=== PATIENT | female | born 1985 | race Hispanic/Latino ===

== ENCOUNTER 2021-04-30 09:53 | Emergency (ER) | payer SELFPAY ==
[2021-04-30 10:31] VITALS: BP 130/80
[2021-04-30] MEDS ORDERED: diphenhydrAMINE 50 MG/ML VIAL IV ONE (11:23)
[2021-04-30] MEDS ORDERED: METOCLOPRAMIDE 10 MG/2 ML INJ IV ONE (11:23)
[2021-04-30] MEDS ORDERED: KETOROLAC 10 MG TAB PO ONE (11:23)
[2021-04-30] MEDS ORDERED: SODIUM CHLORIDE 0.9% 1000 ML 1,000 ML IV ONE (11:23)
[2021-04-30] MEDS ORDERED: dexAMETHasone 20 MG/5 ML VIAL IV ONE (11:23)
[2021-04-30] MEDS ORDERED: IBUPROFEN 800 MG TAB PO STA (11:37)
[2021-04-30] MEDS ORDERED: BUTALB/ACETAMINOPHEN/CAFFEINE TAB PO STA (11:37)
[2021-04-30] MEDS ORDERED: ACETAMINOPHEN 325 MG TAB PO ONE (11:37)
--- NOTE | 2021-04-30 11:58 | Emergency Department Report ---
ED General Adult HPI - General Chief complaint: Headache Stated complaint: MIGRANE Time Seen by Provider: 04/30/21 10:49 Source: patient Mode of arrival: Ambulatory Limitations: No Limitations - History of Present Illness Initial comments: 35-year-old female patient presents with complaints of a headache that started around 4 AM this morning. She rates her headache as a 6/10 in severity. She denies any history of migraines or head injuries. Patient states she has not taken any OTC medication for her symptoms. She reports that she is recently homeless and has not been eating or drinking very much and believes she has a headache due to dehydration. Patient also denies any numbness/tingling/weakness in her limbs, difficulty with speech/ambulation, dizziness, nausea/vomiting, confusion, or memory loss. No prior medical history per patient. She also denies known drug allergies - Related Data Allergies Allergy/AdvReac Type Severity Reaction Status Date / Time Sulfa (Sulfonamide Allergy Hives Verified 04/30/21 10:31 Antibiotics) ED Review of Systems ROS: Stated complaint: MIGRANE Other details as noted in HPI Constitutional: denies: chills, diaphoresis, fever, malaise, weakness Eyes: denies: eye pain, vision change ENT: denies: other (Denies neck pain) Respiratory: denies: cough, shortness of breath Gastrointestinal: denies: nausea, vomiting Skin: denies: rash, lesions, change in color Neurological: headache. denies: numbness, paresthesias, confusion, abnormal gait Hematological/Lymphatic: denies: easy bleeding, easy bruising, swollen glands ED Past Medical Hx - Past Medical History Additional medical history: migraines ED Physical Exam - General Limitations: No Limitations General appearance: alert, in no apparent distress - Head Head exam: Present: atraumatic, normocephalic - Eye Eye exam: Present: normal appearance, PERRL, EOMI. Absent: scleral icterus, conjunctival injection - Neck Neck exam: Present: normal inspection - Respiratory Respiratory exam: Absent: respiratory distress - Cardiovascular Cardiovascular Exam: Present: regular rate - Neurological Exam Neurological exam: Present: alert, oriented X3, CN II-XII intact, normal gait. Absent: motor sensory deficit - Expanded Neurological Exam Expanded Upper motor neuron: Merritt Neglect: Normal, Pronator Drift: Normal, Babinski Sign: Normal, Sensory Extinction: Normal Sensory exam: Upper Extremity Light Touch: Normal, Lower Extremity Light Touch: Normal Motor strength exam: RUE: 4, LUE: 4, RLE: 4, LLE: 4 Best Eye Response (Yuniel): (4) open spontaneously Best Motor Response (Yuniel): (6) obeys commands Best Verbal Response (Yuniel): (5) oriented Meally Total: 15 - Psychiatric Psychiatric exam: Present: normal affect, normal mood - Skin Skin exam: Present: warm, dry, intact, normal color. Absent: rash ED Course Vital Signs 04/30/21 10:30 Temperature 98.0 F Pulse Rate 96 H Respiratory 16 Rate Blood Pressure 130/80 O2 Sat by Pulse 98 Oximetry ED Medical Decision Making - Medical Decision Making 35-year-old female patient presents with complaints of a headache that started around 4 AM this morning. She rates her headache as a 6/10 in severity. She denies any history of migraines or head injuries. Patient states she has not taken any OTC medication for her symptoms. She reports that she is recently homeless and has not been eating or drinking very much and believes she has a headache due to dehydration. Patient also denies any numbness/tingling/weakness in her limbs, difficulty with speech/ambulation, dizziness, nausea/vomiting, confusion, or memory loss. No prior medical history per patient. She also denies known drug allergies Patient states she is really here seeking help in finding a homeless longterm. Patient also requesting food and drinks. Patient given oral headache medications and states her headache has resolved. She is well-appearing and her vitals are within normal limits. She is neurologically intact on exam. Patient is to stable for discharge home. Patient provided with homeless longterm in formation. She was also given [facility] in follow-up. Discussed signs and symptoms that should prompt immediate return to the ED with patient verbalized understand Critical care attestation.: If time is entered above; I have spent that time in minutes in the direct care of this critically ill patient, excluding procedure time. ED Disposition Clinical Impression: Headache, acute, Homeless Disposition: HOME / SELF CARE / HOMELESS Is pt being admited?: No Condition: Stable Instructions: Tension Headache, Adult, Psek-he-Ebau Referrals: [facility] [place] [Outside] - 3-5 Days [facility] [Outside] - 3-5 Days
== END 2021-04-30 16:19 | disposition home or self-care (01) ==
LOC: ED 09:53
DX: G43.909 Migraine, unspecified, not intractable, without status migrainosus (principal); Z88.2 Allergy status to sulfonamides; Z59.00 Homelessness unspecified; Z79.899 Other long term (current) drug therapy
CPT/HCPCS: 99282

== ENCOUNTER 2021-05-13 09:14 | Emergency (ER) | payer SELFPAY ==
[2021-05-13 09:22] VITALS: BP 138/86
--- NOTE | 2021-05-13 10:42 | Event Note ---
ED Screening Note ED Screening Note: TO ER CO L SIDED CP NO ASSOCIATED SYMPTOMS NO COUGH NO FEVER POS CHILLS NO N/V/D PMH NONE PSH NONE This initial assessment/diagnostic orders/clinical plan/treatment(s) is/are subject to change based on patients health status, clinical progression and re- assessment by fellow clinical providers in the ED. Further treatment and workup at subsequent clinical providers discretion. Patient/guardian urged not to elope from the ED as their condition may be serious if not clinically assessed and managed. Initial orders include: RO ACS/URI PT LEFT BEFORE LABS COULD BE DRAWN
--- NOTE | 2021-05-14 09:30 | Electrocardiograph Report ---
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
== END 2021-05-13 18:55 | disposition left against medical advice (07) ==
LOC: ED 09:14
DX: R07.9 Chest pain, unspecified (principal); Z53.21 Procedure and treatment not carried out due to patient leaving prior to being seen by health care provider
CPT/HCPCS: 93005; 93010